=== PATIENT | male | born 1985 | race Caucasian/White ===

== ENCOUNTER 2022-08-04 12:22 | Emergency (ER) | payer BC ==
[~2022-08-04] VITALS: Ht 175.3 cm; Wt 77.1 kg
[2022-08-04 12:26] VITALS: BP 122/78
[2022-08-04] MEDS ORDERED: KETOROLAC 30 MG/ML VIAL IM ONE (13:25)
[2022-08-04] MEDS ORDERED: LIDOCAINE 1% 500 MG/ 50 ML VIAL INJ ONE (13:25)
--- NOTE | 2022-08-04 13:28 | NUR ---
TO ER BED 7
--- NOTE | 2022-08-04 13:36 | NUR ---
Patient was taken to imaging via wheelchair.
--- NOTE | 2022-08-04 13:41 | NUR ---
Patient returned from imaging.
[2022-08-04] MEDS ORDERED: LIDOCAINE MPF 1% 10 MG/ML VIAL INJ ONE (13:45)
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
[2022-08-04] MEDS ORDERED: CEPH-588 PO (15:36)
[2022-08-04] MEDS ORDERED: BACI-416 TP (15:36)
[2022-08-04] MEDS ORDERED: IBUP-1842 PO (15:36)
[2022-08-04] MEDS ORDERED: BACITRACIN OINT 500 UNITS/GM PKT TP ONE (15:40)
--- NOTE | 2022-08-04 16:27 | NUR ---
Patient discharged with v/s stable. Written and verbal after care instructions given. Patient alert, oriented and verbalized understanding of instructions. Ambulatory with steady gait. All questions addressed prior to discharge. ID band removed. Patient advised to follow up with PMD. Rx of BACITRACIN ZINC, CEPHALEXIN, IBUPROFEN given. Opportunity to ask questions provided and answered.
[2022-08-04 16:28] VITALS: BP 137/83
--- NOTE | 2022-08-04 16:31 | NUR ---
The patient's care was reviewed and supervised by [facility], RN.
== END 2022-08-04 16:26 | disposition home or self-care (01) ==
LOC: MED 12:22
DX: S61.311A Laceration without foreign body of left index finger with damage to nail, initial encounter (principal); Z79.1 Long term (current) use of non-steroidal anti-inflammatories (NSAID); Z79.2 Long term (current) use of antibiotics; W31.2XXA Contact with powered woodworking and forming machines, initial encounter; Y92.009 Unspecified place in unspecified non-institutional (private) residence as the place of occurrence of the external cause; Y93.89 Activity, other specified; Y99.8 Other external cause status
CPT/HCPCS: 12001; 73140; 90471; 90715; 96372; 99284; J1885; J2001